=== PATIENT | male | born 1980 | race Hispanic/Latino ===

== ENCOUNTER 2016-09-30 21:02 | Observation (INO) | payer OTHER ==
[~2016-09-30] VITALS: Ht 170.2 cm; Wt 69.5 kg
[2016-09-30 21:11] VITALS: BP 128/80; PULSE 68; RESP 18; O2SAT 98
--- NOTE | 2016-09-30 21:49 | ED.REPORT ---
HPI-Abd Pain M Under 40 Date of Service Sep 30, 2016 ED Provider: Mart Hurt MD Dustin Perry is a 36 year old otherwise healthy man who presents with a 10 hour history of diffuse abdominal pain most focused in the RLQ with associated nausea and vomiting. He states that he was in his usual state of health this morning and ate some lunch and immediately felt some mild abdominal pain, he then went for a run per his usual routine and upon his return from that started feeling increasingly faint and vertiginous. He is a [place] resident who had planned to see his mother here in town so he drove up here, admittedly feeling not entirely safe for driving with bouts of vertigo abdominal pain and nausea, he threw up upon arrival to [place] and felt minimally improved after that , however his pain persists so he decided to come to the ED for further evaluation. Patient reports that he has had multiple orthopedic procedures but still has his appendix and gallbladder. Nursing Notes Stated Complaint: LOWER ABDOMINAL PAIN Chief Complaint: Male Abdominal Pain Nursing Notes Reviewed: Yes Allergies: Uncoded Allergies: SULFA (Allergy, Unknown, 09/30/16) General Time Seen by MD: 21:31 Chief Complaint Abdominal pain Hx Obtained From: Patient Sudden in Onset?: Yes Onset Occurred: 5 - 8 hours ago Symptom Duration: Since onset Progression since Onset: Gradually improving Location: : RLQ Quality: Cramping Radiation: : Abdomen lower Severity: Current: Moderate Severity: Maximum: Severe Associated with: Reports: Nausea, Vomiting Recent Healthcare: No recent doctor visit Similar Sx Previous: No Risk Factors Torsion Risk Stratification No León Clapper Deformity, No Other, No Prior Torsion, No Puberty CAD Risk Stratification No Amphetamine, No Cocaine, No Diabetes mellitus, No Family history, No Hyperlipidemia, No Hypertension, No Known CAD, No Smoking TAD Risk Stratification No 1st degree relative, No Aortic valve disease, No Coarctation of aorta, No Jens-Danlos syndrome, No High intensity wt lifting, No Hypertension, No Inflamm dx / vasculitis, No Loeys-Melodie syndrome, No Marfan's syndrome, No Other genetic predisp, No Pre-exist aortic aneurysm, No , No Turners Syndrome Review of Systems GI: Reports: Abdominal pain, Nausea, Vomiting Physical Exam Gen: A/O x3 pleasant cooperative man in Mild acute distress secondary to abdominal pain Neck: Supple, non tender, no thyromegaly HEENT: PERRL, EOMI, mucous membranes intact, no scleral icterus CV: RRR, no murmurs rubs or gallops Resp: Lungs CTA BL, no wheezing rales or rhonchi Abdomen: Soft, Tender to palpation in RLQ and to a lesser degree in LLQ, Rosvig negative, obturator sign weakly positive, Psoas sign positive, McBurney's point tender, no rebound tenderness or guarding. Extr: No cyanosis clubbing or edema Neuro: CN 2-12 grossly intact, no focal neurologic deficit. Initial Vital Signs Vital Signs (First) Date Time Temp Pulse Resp B/P Pulse Ox O2 Delivery O2 Flow Rate FiO2 09/30/16 21:11 36.4 68 18 128/80 98 Room Air Initial VS: Reviewed, Vital signs normal Interpretation & Diagnostics Lab Results Interpretation Result Diagram: 09/30/16221409/30/162214 Test 09/30/16 21:30 09/30/16 22:15 Urine Color Dark yellow (YELLOW) Urine Appearance Clear (CLEAR,HAZY) Urine pH 8.0 (5.0-8.0) Urine Specific [place] 1.015 (1.003-1.035) Urine Protein Negativemg/dL (NEG,TRACE) Urine Glucose (UA) Negativemg/dL (NEGATIVE) Urine Ketones 40mg/dL (NEGATIVE) Urine Occult Blood Negative (NEGATIVE) Urine Nitrite Negative (NEGATIVE) Urine Bilirubin Negative (NEGATIVE) Urine Urobilinogen 1.0mg/dL (NORMAL) Urine Leukocyte Esterase Negative (NEGATIVE) Urine RBC 0-2/hpf (0-2) Urine WBC 0-5/hpf (0-5) Urine Epithelial Cells Occasional/hpf (NONE-MOD) Urine Crystals None seen (NONE SEEN) Urine Bacteria Few/hpf (NONE-FEW) Urine Hyaline Casts None/lpf (NONE) Urine Granular Casts None seen (NONE SEEN) Urine Waxy Casts None seen (NONE SEEN) Urine Red Blood Cell Casts None seen (NONE SEEN) Urine White Blood Cell Casts None seen (NONE SEEN) Urine Mucus Present (None Seen) Urine Trichomonas None seen (NONE SEEN) Urine Yeast None (NONE SEEN) Urinalysis Comment None Urine Culture Reflexed Not indicated Hold Urine Received (Received) White Blood Count 14.2th/mm3 (3.8-10.1) Red Blood Count 4.88mil/mm3 (4.40-5.80) Hemoglobin 16.7g/dL (13.8-17.2) Hematocrit 46.0% (41.0-50.0) Mean Corpuscular Volume 94.3fL (81-100) Mean Corpuscular Hemoglobin 34.2pg (27.0-35.0) Mean Corpuscular Hemoglobin Concent 36.3% (32.0-37.0) Red Cell Distribution Width 11.7% (12.3-15.4) Platelet Count 193bil/L (150-400) Neutrophils (%) (Auto) 84.1% (40-74) Lymphocytes (%) (Auto) 8.3% (14-46) Monocytes (%) (Auto) 6.6% (4-12) Eosinophils (%) (Auto) 0.5% (0-5) Basophils (%) (Auto) 0.2% (0-3) Sodium Level 139mEq/L (134-144) Potassium Level 4.3mEq/L (3.5-5.2) Chloride Level 101mEq/L (97-108) Carbon Dioxide Level 23mmol/L (18-29) Blood Urea Nitrogen 16mg/dL (6-20) Creatinine 0.92mg/dL (0.76-1.27) Estimat Glomerular Filtration Rate 100mL/min (>59) Glucose Level 118mg/dL (60-99) Calcium Level 9.8mg/dL (8.5-10.1) Magnesium Level 1.8mg/dL (1.6-2.6) Total Bilirubin 1.0mg/dL (0.0-1.2) Aspartate Amino Transf (AST/SGOT) 27U/L (0-50) Alanine Aminotransferase (ALT/SGPT) 30U/L (0-44) Alkaline Phosphatase 61U/L (25-150) Total Protein 7.3g/dL (6.4-8.4) Albumin 4.6g/dL (3.4-5.0) Lipase 26U/L (13-60) Hold Harris Top Tube Received (Received) Lab Results Interpretation: Leukocytosis with Neutrophil predominance, US did not visualize the appendix, CT indicative of acute appendicitis with no intra-abdominal abscess or perforation. Re-Eval/Medical Decision Med Decision/Clinical Course This is an otherwise healthy 36 year old man who developed acute onset RLQ abdominal pain with associated nausea and vomiting, laboratory evaluation significant for leukocytosis with neutrophil predominance, US was unable to visualize his appendix, but CT scan of the abdomen was indicative of acute appendicitis. We spoke with Dr. Hall from general surgery who advised us to admit the patient for further evaluation and a likely appendectomy. Differential Diagnosis: Positive: Appendicitis Patient Discharge & Departure Shift Change Sign-Out Patient Care Transferred: Yes Discussed Complaint(s): Yes Laboratory Evaluation: Lab evaluation discussed Imaging Studies: Imaging discussed Procedures: Results discussed Response to Therapy: Unchanged Primary Impression: Acute appendicitis Acute appendicitis type: other Qualified Code: K35.89 - Other acute appendicitis Disposition: ADMITTED TO HOSPITAL Attending Statement Seen with Dr Gray on 09/30. Agree with above. copies to: Matheus Harrison DO Sep 30, 2016 21:49 Mart Hurt MD Oct 01, 2016 01:57
[2016-09-30 22:27] LABS: BASOPHILS % (AUTO) 0.2 % (0-3); EOSINOPHILS % (AUTO) 0.5 % (0-5); MONOCYTES % (AUTO) 6.6 % (4-12); Mean Corpuscular Hemoglobin 34.2 pg (27.0-35.0); Mean Corpuscular Volume 94.3 fL (81-100); NEUTROPHILS % (AUTO) 84.1 % (40-74); Platelet Count 193 bil/L (150-400)
[2016-09-30 22:48] LABS: Magnesium 1.8 mg/dL (1.6-2.6)
[2016-09-30 22:57] LABS: APPEARANCE,URINE CLEAR (CLEAR,HAZY); COLOR,URINE DARK YELLOW (YELLOW); OCCULT BLOOD,URINE NEGATIVE (NEGATIVE)
[2016-09-30] MEDS ORDERED: Iohexol 300 mg/mL 30 mL Inj PO ONE (23:20)
[2016-09-30] MEDS ORDERED: Ondansetron 2 mg/mL 2 mL Inj IVPUSH ONE (23:45)
[2016-10-01] VITALS (14 sets, daily range): BP systolic 103–142; BP diastolic 62–97; PULSE 59–84; RESP 12–18; O2SAT 94–100
[2016-10-01] MEDS ORDERED: Ondansetron 2 mg/mL 2 mL Inj IVPUSH PRN ×2 (02:25→10:25)
[2016-10-01] MEDS ORDERED: HYDROmorphone PCA 0.2 mg/mL 30 mL Inj IV PRN (02:25)
[2016-10-01] MEDS: Lactated Ringer's 1,000 ML IV SCH ×2 (03:30→12:24)
--- NOTE | 2016-10-01 04:05 | NUR ---
admission patient admitted to room 1001. 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 npo. reviewed fall precautions. verbalized understanding. care ongoing.
--- NOTE | 2016-10-01 07:53 | DRSVH ---
PROCEDURE: CT ABDOMEN AND PELVIS WITH CONTRAST ([id number]) INDICATIONS: Right lower quadrant abdominal pain. TECHNIQUE: After the administration of oral and intravenous contrast, 5 mm thick sections acquired from the diap hragms to the symphysis. 5 mm thick coronal and sagittal reformats were performed. For radiation do se reduction, the following was used: automated exposure control, adjustment of mA and/or kV accordi ng to patient size. COMPARISON: None. FINDINGS: Image quality: Excellent. ABDOMEN: Lung bases: There is mild dependent atelectasis. Heart size is normal. Solid organs: Liver and spleen are normal in size and enhancement. Gallbladder appears within maryjo l limits. Biliary system is non-dilated. Pancreas enhances normally. No adrenal nodules. Kidneys are normal in size and enhancement, without hydronephrosis. Peritoneum and bowel: Stomach, small bowel, and colon loops are normal in caliber and wall thickness . The appendix is enlarged, measuring up to approximately 1 cm in transverse dimension with alternat ing and enhancement and mild periappendiceal fat stranding. No definite free fluid or free air. No periappendiceal abscess. There is diverticulosis without evidence of acute diverticulitis. Nodes and vessels: No retroperitoneal or mesenteric adenopathy. Aorta and inferior vena cava are no rmal in caliber. Miscellaneous: No ventral hernias. PELVIS: Genitourinary: Bladder wall thickness is normal. Miscellaneous: No inguinal hernias or adenopathy. Bones: No suspicious bony lesions. No vertebral body compression fractures. IMPRESSION: 1. Acute appendicitis without evidence of perforation on the current study. 2. Diverticulosis. Findings were reported to the emergency room on 10/01/16 at 1:[address] [facility] radiology services. This report is concordant with preliminary interpretation. Dictated by: Александр Frey M.D. on 10/01/2016 at 7:42 Approved by: Александр Frey M.D. on 10/01/2016 at 7:46
--- NOTE | 2016-10-01 07:55 | HP ---
[address] [address] HISTORY AND PHYSICAL PATIENT: BEATRIZ DOHERTY : 1980 MR#: [id number] ADMIT: 10/01/2016 JOB ID: [id number] CHIEF COMPLAINT: Appendicitis. HISTORY OF PRESENT ILLNESS: The patient is a 36-year-old male who presented to the emergency department last night due to abdominal pain. According to the patient, this discomfort started yesterday morning around 11 a.m. It was in the lower abdomen described as pressure and discomfort which came and went. At around 4 p.m. after doing some running, he started to have more pain in the lower abdomen. He described associated cramping and chills. He vomited once once he arrived at [facility]. The patient typically lives in [place], but he drove to [place] because his mom lives here. Workup in the emergency department last night included a CT scan that suggests acute appendicitis. His white blood count was elevated at 14.2. PAST MEDICAL HISTORY: 1. Left ankle surgery. 2. Anal fissure surgery. 3. Tonsillectomy. 4. ADD. MEDICATIONS: Adderall. ALLERGIES: To SULFA. 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 He is single. He does not smoke. FAMILY HISTORY: Negative for appendicitis. REVIEW OF SYSTEMS: Positive for the abdominal pain, chills and vomiting. All other systems reviewed were negative. PHYSICAL EXAMINATION: The patient is currently in the hospital bed in no acute distress. Temperature is 36.8, blood pressure 109/67, pulse is 80, respirations 18. Head is normocephalic, atraumatic. There is no scleral icterus. Neck is supple. Heart is regular rate. Lungs are clear. Abdomen is nondistended. It is soft but tender in the right lower quadrant on palpation. Extremities show no clubbing and no cyanosis. Neurologically, the patient is awake and alert and answers appropriately. LABORATORY EXAMINATION: Shows a white blood count of 14.2. Sodium is 139, potassium 4.3, lipase of 26. The overnight [place] read on the CT scan shows acute appendicitis. ASSESSMENT: This is a 36-year-old male with most likely acute appendicitis. We will start him on IV antibiotics and he will be taken to the operating room today for a laparoscopic appendectomy, possible open. The risks of the operation were discussed with the patient and the patient understands and wishes to proceed.
[2016-10-01] MEDS ORDERED: Influenza (Adult) Vaccine 0.5 mL Syringe IM ONE (08:30)
--- NOTE | 2016-10-01 09:06 | DRSVH ---
PROCEDURE: US APPENDIX INDICATIONS: Right lower quadrant abdominal pain. TECHNIQUE: Real-time focused scanning was performed of the abdomen with attention to the appendix, with image do cumentation. COMPARISON: None. FINDINGS: The appendix was not identified sonographically. No free fluid visualized in the right lower quadran t. Patient was reportedly tender during the study. IMPRESSION: 1. Appendix not discretely identified sonographically. Appendicitis cannot be excluded. Dictated by: Александр Frey M.D. on 10/01/2016 at 8:58 Approved by: Александр Frey M.D. on 10/01/2016 at 8:59
[2016-10-01] MEDS: Piperacillin-Tazo 3.375 Gm Inj 3.375 GM in Dextrose 5% Minibag Plus 50 ML IV SCH ×3 (09:14→16:45)
[2016-10-01] MEDS ORDERED: Lactated Ringer's 500 ML IV PRN (10:21)
[2016-10-01] MEDS ORDERED: Lactated Ringer's 1,000 ML IV SCH (10:21)
--- NOTE | 2016-10-01 10:21 | PCM.HPANE ---
Patient Data Surgeon Admitting Provider:Oj Hall MD Attending Provider:Oj Hall MD Primary Care Physician:Nopcp Other Provider: Reason for Visit Acute Appendicitis Ht/WT & BMI Height (Feet): 5 Height (Inches): 7.00 Weight (Kilograms): 69.500 Body Mass Index 24.05 Allergies Coded Allergies: Sulfa (Sulfonamide Antibiotics) (Unverified Allergy, Unknown, 10/01/16) Uncoded Allergies: SULFA (Allergy, Unknown, 09/30/16) Past Anesthesia History Anesthesia History: Denies:: Anesthesia Reactions Diabetes History Hx Diabetes?: No MRSA MRSA: No Medications Hypertension Medication: No Home Meds Incl Beta Valdo: No No Active Prescriptions or Reported Meds History History of ENT Problems?: Yes Other HEENT Pertinent History: mima syndrome: right eye muscle is since Hx of Heart Problems?: No Cardiovascular History: Denies:: Congestive Heart Failure Hypertension Hx of Respiratory Problem?: No Respiratory History: Denies:: Tuberculosis Hx Neurologic Problems?: No Hx of GI Problems?: Yes Gastrointestinal History: Positive for:: Heartburn (from food) Other GI Pertinent History: annal fissure repair last year Hx of Problems?: No Male Hx: Positive for:: Prostate Problems Hx Musculoskeletal Problems?: Yes Musculoskeletal History: Positive for:: Musculoskeletal Trauma (plate and 7 screws in left ankle) Denies:: Back Injury Joint Replacement Hx of Psycho/Social Problems?: No Hx Surgeries?: Yes (anal fissure repair, ankle left several surgeries, tonsils) Hx Any Other Health Problems?: Yes History Blood Transfusions: Positive for:: Accept Blood Products? Denies:: Blood Transfuse Reaction Blood Transfusions Hx Diabetes: No Hx Alcohol Use: Yes (occ. )Alcoholic Drinks Per Day: 3 x weekly up to 2-3 drinksHx Substance Use: Yes (marijuana 1-2 x day)Have You Smoked inLast 12 mo: NoApprox How Many Cigarettes/day: 1/2 ppd quit 3 years ago Stop/Bang Treated for Sleep Apnea?: No Do You Have a CPAP Machine?: No S-Snoring: Do You Snore Loudly: No T-Tired: feel tired, fatigued: No O-Obsered: Observed not breath: No P-Blood Pressure: treated: No B- Body Mass Index > 35 kg/m2: No A- Age over 50: No N- Neck Large Circumference: No G- Gender Male: Yes ALFRED Total Score: 1 ALFRED Risk Assessment: Low Risk, <3 Yes Risk Assessment Category Category 1A: Patient has history of documented sleep apnea, and HAS NOT received any narcotic, sedative or anesthesia administration during this stay. Category 1B: Patient has history of documented sleep apnea, and HAS received any narcotic , sedative or anesthesia administration during this stay Category 2: Patient has SUSPECTED Obstructive Sleep Apnea, and HAS received any narcotic , sedative or anesthesia administration during this stay. Category 3: Patient has SUSPECTED Obstructive Sleep Apnea and HAS NOT received narcotic, sedative or anesthesia administration during this stay. Category 4: Outpatient in Procedural Areas with known sleep apnea or who screen positive for High Risk via the STOP/BANG questionnaire. Exam Exam Vital Signs Vital Signs Date Time Temp Pulse Resp B/P Pulse Ox O2 Delivery O2 Flow Rate FiO2 10/01/16 08:59 16 96 10/01/16 08:13 36.1 83 18 105/62 96 Room Air 10/01/16 05:32 16 97 10/01/16 03:11 36.8 80 18 109/67 95 Room Air General Appearance: Oriented X3 HEENT/AIRWAY: MP 2 Lungs: Normal Air Movement Heart: Regular Rate/Rhythm Meds/Labs/Diagnostics Admission Meds Current Medications Iohexol (Omnipaque-300 Inj) 9,000 mg ONCE ONCE PO Last administered on 23:55; Start 09/30/16 at 23:20; Stop 09/30/16 at 23:21; Status DC Ondansetron HCl 8 mg 8 mg ONCE ONCE IVPUSH Last administered on 09/30/16 23: 55; Start 09/30/16 at 23:45; Stop 09/30/16 at 23:46; Status DC Lactated Ringer's 1,000 ml @ 100 mls/hr Q10H IV Last administered on 03:30; Start 10/01/16 at 02:24 Piperacillin Sod/ Tazobactam Sod/ Dextrose/Water (Zosyn 3.375 Gm Inj/D5W Minibag Plus) 50 ml @ 12.5 mls/hr Q8 IV Last administered on 10/01/16 09:14; Start 10/01/16 at 08:30 Labs Test 09/30/16 21:30 3/24/17 22:15 Urine Color Dark yellow (YELLOW) Urine Appearance Clear (CLEAR,HAZY) Urine pH 8.0 (5.0-8.0) Urine Specific [place] 1.015 (1.003-1.035) Urine Protein Negativemg/dL (NEG,TRACE) Urine Glucose (UA) Negativemg/dL (NEGATIVE) Urine Ketones 40mg/dL (NEGATIVE) Urine Occult Blood Negative (NEGATIVE) Urine Nitrite Negative (NEGATIVE) Urine Bilirubin Negative (NEGATIVE) Urine Urobilinogen 1.0mg/dL (NORMAL) Urine Leukocyte Esterase Negative (NEGATIVE) Urine RBC 0-2/hpf (0-2) Urine WBC 0-5/hpf (0-5) Urine Epithelial Cells Occasional/hpf (NONE-MOD) Urine Crystals None seen (NONE SEEN) Urine Bacteria Few/hpf (NONE-FEW) Urine Hyaline Casts None/lpf (NONE) Urine Granular Casts None seen (NONE SEEN) Urine Waxy Casts None seen (NONE SEEN) Urine Red Blood Cell Casts None seen (NONE SEEN) Urine White Blood Cell Casts None seen (NONE SEEN) Urine Mucus Present (None Seen) Urine Trichomonas None seen (NONE SEEN) Urine Yeast None (NONE SEEN) Urinalysis Comment None Urine Culture Reflexed Not indicated Hold Urine Received (Received) White Blood Count 14.2th/mm3 (3.8-10.1) Red Blood Count 4.88mil/mm3 (4.40-5.80) Hemoglobin 16.7g/dL (13.8-17.2) Hematocrit 46.0% (41.0-50.0) Mean Corpuscular Volume 94.3fL (81-100) Mean Corpuscular Hemoglobin 34.2pg (27.0-35.0) Mean Corpuscular Hemoglobin Concent 36.3% (32.0-37.0) Red Cell Distribution Width 11.7% (12.3-15.4) Platelet Count 193bil/L (150-400) Neutrophils (%) (Auto) 84.1% (40-74) Lymphocytes (%) (Auto) 8.3% (14-46) Monocytes (%) (Auto) 6.6% (4-12) Eosinophils (%) (Auto) 0.5% (0-5) Basophils (%) (Auto) 0.2% (0-3) Sodium Level 139mEq/L (134-144) Potassium Level 4.3mEq/L (3.5-5.2) Chloride Level 101mEq/L (97-108) Carbon Dioxide Level 23mmol/L (18-29) Blood Urea Nitrogen 16mg/dL (6-20) Creatinine 0.92mg/dL (0.76-1.27) Estimat Glomerular Filtration Rate 100mL/min (>59) Glucose Level 118mg/dL (60-99) Calcium Level 9.8mg/dL (8.5-10.1) Magnesium Level 1.8mg/dL (1.6-2.6) Total Bilirubin 1.0mg/dL (0.0-1.2) Aspartate Amino Transf (AST/SGOT) 27U/L (0-50) Alanine Aminotransferase (ALT/SGPT) 30U/L (0-44) Alkaline Phosphatase 61U/L (25-150) Total Protein 7.3g/dL (6.4-8.4) Albumin 4.6g/dL (3.4-5.0) Lipase 26U/L (13-60) Hold Harris Top Tube Received (Received) Plan Impression Patient chart reviewed, patient interviewed and anesthestic plan with risks, benefits, and alternatives discussed, and informed consent obtained. ASA Physical Status: ASA2 Mod Systemic Disease Anesthetic Plan: GA Bene/Risks/Altern/Consents: Yes HP Complete Prior to Induction: Yes Drew Mota MD Oct 01, 2016 10:21
[2016-10-01] MEDS ORDERED: Dexamethasone 4 mg/mL Inj IVPUSH PRN (10:25)
[2016-10-01] MEDS ORDERED: fentaNYL-PF 50 mCg/mL 2 mL Inj IVPUSH PRN (10:25)
[2016-10-01] MEDS ORDERED: MetoCLOpramide 5 mg/mL 2 mL Inj IVPUSH PRN (10:25)
[2016-10-01] MEDS ORDERED: Phenylephrine 10,000 mCg/mL Inj IVPUSH PRN (10:25)
[2016-10-01] MEDS ORDERED: EPHEDrine Sulfate 50 mg/mL Inj IVPUSH PRN (10:25)
[2016-10-01] MEDS ORDERED: HYDROmorphone 1 mg/mL Inj IVPUSH PRN ×2 (10:25→11:30)
--- NOTE | 2016-10-01 10:33 | NUR ---
Social Work Note: Screen Note Data& Assessment: EMR reviewed. Patient is a 36 year old male admitted on 10/01/16 for Acute Appendicitis. Pt has [facility] [employer] for insurance coverage and sees no one for primary care. Pt lives in [place] and is independent at baseline. Pt is currently SBA in his room. No discharge needs identified at this time. SW to continue to follow if any needs arise. Plan: Anticipated discharge home via POV when medically ready. No discharge needs identified at this time. SW to continue to follow if any needs arise. Paula Gresham, [place], ACM
[2016-10-01] MEDS ORDERED: Lactated Ringer's 1,000 ML IV ONE (11:05)
[2016-10-01] MEDS ORDERED: Bupivacaine-MPF 0.5% W/EPI 30 mL Inj INJ ONE (11:06)
[2016-10-01] MEDS ORDERED: HYDROcodone-APAP 5-325 mg Tablet PO PRN (11:30)
[2016-10-01] MEDS ORDERED: Sodium Chloride LOK Flush 10 mL Syringe IVFLUSH PRN (11:30)
--- NOTE | 2016-10-01 11:55 | PCM.ANEP1 ---
Post Anesthesia Phase 1 PACU Phase 1 Assessment Vital Signs Vital Signs Date Time Temp Pulse Resp B/P Pulse Ox O2 Delivery O2 Flow Rate FiO2 10/01/16 11:50 70 14 141/97 100 Simple Mask 7 10/01/16 11:45 36.7 142/94 10/01/16 08:59 16 96 10/01/16 08:13 36.1 83 18 105/62 96 Room Air 10/01/16 05:32 16 97 Anesthetic Administered: GA Level of Alertness: Awake, talking Pain: No Nausea or Vomiting: No Oxygen Delivery: Room Air Lungs: Normal Air Movement Drew Mota MD Oct 01, 2016 11:55
--- NOTE | 2016-10-01 11:55 | PCM.ANEP2 ---
Post Anesthesia Evaluation ASA/CMS Post Anesthesia VS in Patient's Normal Range?: Yes Resp Stable; Airway Patent?: Yes CV Function & Hydration Stable: Yes Mental Status Recovered?: Yes Pain control Satisfactory?: Yes N/V Control Satisfactory?: Yes Drew Mota MD Oct 01, 2016 11:55
--- NOTE | 2016-10-01 17:00 | NUR ---
Post Op Patient back on floor from PACU at 1235. VSS. Dressing CDI. Denies nausea. Reports 4/10 abdominal pain. Tolerating oral fluids and food. Up to restroom. Patient's parents at bedside. Call light and tray table within reach. Will continue to monitor patient hourly.
--- NOTE | 2016-10-01 17:17 | PCM.DISURG ---
Surgical Discharge Instruction Date of Service Oct 01, 2016 Dates of Hospitalization Date of Hospital Admission Oct 01, 2016 at 01:54 Providers Admitting Physician: Oj Hall MD Primary Care Physician: Nopcp Attending Physician: Oj Hall MD Discharge Diagnosis Discharge Diagnosis Appendicitis s/p lap appendectomy Diet Discharge Diet: No restrictions Activity Discharge Activity-General: Balance rest and activity, Activity as energy allows, No lifting >15 pounds for 2 weeks, No driving while taking narcotic Dressing and Incisional Care Dressing Care: Keep dressing clean, dry & intact, Allow Steri Stripes to fall off Hygiene: May shower Additional Instructions Discharge Instructions Rx: percocet #15, colace OK to take home meds F/U in 2-3 weeks at [facility] or your own doctor for postop check. Follow Up Plan Follow-up Provider (F9): Monet Christianson PAC Follow-up appointment: Weeks (2-3) Call your provider for: Fever, Shortness of breath, Increasing abdominal pain, Vomiting, Discharge @ incision, pus discharge Eric Drummond MD Oct 01, 2016 17:17
[2016-10-01] MEDS ORDERED: Glycopyrrolate 0.2 MG/ML 1mL Inj ONE (17:44)
[2016-10-01] MEDS ORDERED: MetoCLOpramide 5 mg/mL 2 mL Inj ONE (17:44)
[2016-10-01] MEDS ORDERED: Neostigmine 1 mg/mL 10 mL Inj ONE (17:44)
[2016-10-01] MEDS ORDERED: Propofol 10,000 mCg/mL 20 mL Inj ONE (17:44)
[2016-10-01] MEDS ORDERED: Rocuronium 10 mg/mL 5 mL Inj ONE (17:44)
[2016-10-01] MEDS ORDERED: Dexamethasone 4 mg/mL Inj ONE (17:44)
[2016-10-01] MEDS ORDERED: Ondansetron 2 mg/mL 2 mL Inj ONE (17:44)
[2016-10-01] MEDS ORDERED: fentaNYL-PF 50 mCg/mL 2 mL Inj ONE (17:44)
--- NOTE | 2016-10-01 17:55 | NUR ---
Discharge Patient discharged home. IV DC'd and intact. Dressings CDI. Discharge instructions given with no questions. Percocet and Colase RX sent with patient. Patient gathered all belongings. Nurse escorted patient out via walking.
[2016-10-01] MEDS ORDERED: Piperacillin-Tazo 3.375 Gm Inj 3.375 GM in Dextrose 5% Minibag Plus 50 ML IV SCH (19:00)
--- NOTE | 2016-10-02 17:30 | OP ---
[address] [address] OPERATIVE REPORT PATIENT: BEATRIZ DOHERTY : 1980 MR#: [id number] ADMIT: 10/01/2016 JOB ID: [id number] DATE OF SURGERY: 10/01/2016 SURGEON: Eric Drummond MD. COMMUNITY REPRESENTATIVE: DINAH Smiley. ANESTHESIA: General. PREOPERATIVE DIAGNOSIS(ES): Acute appendicitis. POSTOPERATIVE DIAGNOSIS(ES): Acute appendicitis. PRINCIPAL PROCEDURE: Laparoscopic appendectomy. INDICATION FOR PROCEDURE: The patient is a 36-year-old male with signs and symptoms and a CT scan consistent with acute appendicitis. OPERATIVE FINDINGS: Principal finding is nonperforated acute appendicitis. Successful laparoscopic appendectomy. PROCEDURE COURSE: The patient was brought to the operating table and was provided with general anesthesia. The patient was given IV antibiotics and SCDs. A time-out was performed. The patient's abdomen was then prepped and draped in the usual sterile fashion. Next, local anesthetic was injected into the left upper quadrant location and a 5 mm stab incision was made. A Veress needle was used to establish pneumoperitoneum. A 5 mm trocar was then placed and the laparoscope was then introduced. Upon visualization of the peritoneal cavity, there was no obvious injury. A second 5 mm trocar was then placed in the left lateral abdomen and a 12 mm trocar was then placed in the left lower quadrant. There were some omental adhesions on the right lateral abdomen and these were taken down using cautery. The appendix was quickly identified in the right lower quadrant attached to the cecum with signs of acute appendicitis. A window was then made in the mesoappendix adjacent to the base of the appendix and using an endoscopic stapler, the base of the appendix was then transected. The mesoappendix was divided using electrocautery. The specimen was then placed into the EndoCatch bag and removed from the patient. Irrigation of the right upper quadrant, right lower quadrant and also of the pelvis was carried out and all the fluid was aspirated. The staple line was inspected and that appeared to be hemostatic and intact. Next, we turned our attention to the left lower quadrant trocar site. The fascial defect there was then reapproximated using 0 Vicryl suture using the Endo Close device. Next, CO2 was allowed to escape and all the trocars were then removed from the patient. Skin edges were then reapproximated using absorbable sutures. Steri-Strips and sterile dressing was then placed over each wound. By the end of the procedure, needle counts and sponge counts were correct. The patient was then extubated and taken to the recovery room in stable satisfactory condition.
--- NOTE | 2016-10-03 09:04 | PCM.DC.SUR ---
Discharge Summary Date of Service: Date of Hospital Admission: Oct 01, 2016 at 01:54 Date of Operation(s): 10/01/16 Date of Discharge: 10/01/16 Diagnosis at Time of Discharge Primary diagnosis: Acute Appendicitis Secondary Diagnosis: 1. Left ankle surgery. 2. Anal fissure surgery. 3. Tonsillectomy. 4. ADD. Problems: Operation Laparscopic Appendectomy Brief History and Physical: The patient is a 36-year-old male who presented to the emergency department last night due to abdominal pain. According to the patient, this discomfort started yesterday morning around 11 a.m. It was in the lower abdomen described as pressure and discomfort which came and went. At around 4 p.m. after doing some running, he started to have more pain in the lower abdomen. He described associated cramping and chills. He vomited once once he arrived at [facility]. The patient typically lives in [place], but he drove to [place] because his mom lives here. Workup in the emergency department last night included a CT scan that suggests acute appendicitis. His white blood count was elevated at 14.2. Consultants: General Surgery: Dr. Eric Drummond [facility] Course: Patient back on floor from PACU at 1235. VSS. Dressing CDI. Denies nausea. Reports 4/10 abdominal pain. Tolerating oral fluids and food. Up to restroom. Patient's parents at bedside. Call light and tray table within reach. Will continue to monitor patient hourly. Patient discharged home. IV DC'd and intact. Dressings CDI. Discharge instructions given with no questions. Percocet and Colace RX sent with patient. Patient gathered all belongings. Nurse escorted patient out via walking. Pathology: Pending Disposition: Home Follow-up Plan: Follow-up Provider Monet Christianson PAC Follow-up appointment: Weeks (2-3) No Active Prescriptions or Reported Meds Lynsey Rodriguez PA-C Oct 03, 2016 09:03
--- NOTE | 2016-10-05 09:48 | PATH ---
SURGICAL PATHOLOGY Attending Physician:Eric Drummond M.D. CASE STATUS: Signed Out PATIENT NAME: BEATRIZ DOHERTY PID: [id number] : 1980 DATE COLLECTED:10/01/2016 00:00 SPECIMEN: Appendix CLINICAL HISTORY: APPENDICITIS 1). APPENDIX FINAL DIAGNOSIS: Appendix: Acute suppurative appendicitis and peritonitis. No evidence of malignancy. ICD10 K35.80 GROSS DESCRIPTION: The specimen is received in one formalin filled container labeled with the patient's name, sublabeled "appendix" and consists of one cylindrical baeza appendix measuring 6.5 x 0.9 x 0.9 CM. The serosal surface is baeza-brown, smooth and glistening. There is a large amount of attached fatty tissue. Sectioning reveals the wall to be thickened to approximately 0.2 CM. The lumen contains a light whitfield-baeza to baeza-brown slightly friable to semisolid material. 4 sales representative graphic art sections are submitted in one cassette. 10/03/2016 [facility] ICD-9 CODES: CPT CODES: 1: 27036 Electronically Signed Out Daniel Dunn MD [facility] [address], [place] [address] Technical component performed at [facility], [address] [place] [address] Ave[address], [place], [address]
== END 2016-10-01 17:45 | disposition home or self-care (01) ==
LOC: SED 21:02 → OSC 10-01 01:54
PROVIDERS: ADMIT Student in an Organized Health Care Education/Training Program; ATTEND Surgery
PROC: 0DTJ4ZZ Resection of Appendix, Percutaneous Endoscopic Approach (ICD-10-PCS; principal; 2016-10-01 10:30)
DX: K35.80 Unspecified acute appendicitis (principal); Z23 Encounter for immunization
CPT/HCPCS: 36415; 44970; 74177; 76705; 80053; 81000; 83690; 83735; 85025; 88305; 90674; 94640; 96374; 99285; G0378; J1100; J1885; J2175; J2405; J2543; J2710; J2765; J3010; J7120; Q9967